=== PATIENT | male | born 1975 | race Caucasian/White ===

== ENCOUNTER 2017-10-30 20:31 | Emergency (ER) | payer OTHER ==
[~2017-10-30] VITALS: Ht 175.3 cm; Wt 77.1 kg
[~2017-10-30 20:31] MED LIST: CEPH500 PO; CIPR500 PO; CYCL10 PO; HYDACE5325 PO; IBUP600 PO; NAPR500 PO; ONDA4 PO; OXYACE5T PO; RXOXYACE PO; TAMS.4ER PO; TRAM50 PO
[2017-10-30] MEDS ORDERED: Amoxicillin500 MG PO (20:53)
[2017-10-30] MEDS ORDERED: TRAM50 PO (21:10)
== END 2017-10-30 21:18 | disposition home or self-care (01) ==
LOC: ER 20:31
DX: K04.7 Periapical abscess without sinus (principal); Z79.2 Long term (current) use of antibiotics
CPT/HCPCS: 41800; 99283

== ENCOUNTER 2024-10-19 08:39 | Day surgery (SDC) | payer OTHER ==
[2024-10-19] VITALS (13 sets, daily range): BP systolic 90–120; BP diastolic 53–69
[~2024-10-19] VITALS: Ht 175.3 cm; Wt 84.1 kg
[~2024-10-19 08:39] MED LIST changes: +Amoxicillin500 MG PO; +BUPR150ER PO; +Lactated Ringer's 1,000 ML IV SCH
[2024-10-19] MEDS ORDERED: propofoL 40 ML IV ONE (08:57)
[2024-10-19] MEDS ORDERED: Prozac40 MG PO (09:05)
[2024-10-19] MEDS ORDERED: Midazolam HCl 1MG / ML 2ML Vial ONE (09:14)
--- NOTE | 2024-10-19 09:17 | NUR ---
2 PREVIOUS IV ATTEMPTS BY YARELY
[2024-10-19] MEDS ORDERED: Atropine Sulfate 0.1 MG/ML 10ML SYR ONE (09:20)
--- NOTE | 2024-10-19 09:21 | NUR ---
10/19/24 0921 Reyna Dial CONFIRMED AND REVIEWED H&P, MEDCICATIONS, ALLERGIES, MEDICAL HISTORY, RESPIRATORY HISTORY, VITAL SIGNS, 3-LEAD EKG, CONSENTS, AND PHYSICIAN ORDERS. PATIENT CONFIRMS NPO STATUS AND AGREES WITH SCHEDULED PROCEDURE. MONITOR INTACT WITH CONTINUOUS PULSE OXIMETRY, CAPNOGRAPHY, 3-LEAD EKG, INTERMITTENT BP. SUPPLEMENTAL O2 TO BE TITRATED THROUGHOUT PROCEDURE TO MAINTAIN O2 SATURATION ABOVE 90%. PATIENT DETERMINED TO BE ASA APPROPRIATE FOR PROPOFOL SEDATION PRIOR TO START OF PROCEDURE BY . MALLAMPATI CLASS 2 AIRWAY: COMPLETE VISUALIZATION OF THE UVULA.
--- NOTE | 2024-10-19 10:06 | NUR ---
Discharge instructions reviewed with patient. Patient verbalizes understanding. Copy given to patient to take home. Patient States Post-Procedure ride home has been arranged. Discharged via wheelchair to private car for ride home.
== END 2024-10-19 23:00 | disposition home or self-care (01) ==
LOC: ORSCMMR 08:39 → ORD 09:30 → ORSCMMR 23:00
PROVIDERS: Internal Medicine Gastroenterology
PROC: 0DBP8ZX Excision of Rectum, Via Natural or Artificial Opening Endoscopic, Diagnostic (ICD-10-PCS; principal; 2024-10-19 09:30)
DX: Z12.11 Encounter for screening for malignant neoplasm of colon (principal); K62.1 Rectal polyp; F32.A Depression, unspecified; Z87.891 Personal history of nicotine dependence; Z79.899 Other long term (current) drug therapy
CPT/HCPCS: 88305; J0461; J2250; J2704; J7120